=== PATIENT | female | born 1990 | race African-American/Black ===

== ENCOUNTER 2021-02-19 09:10 | Emergency (ER) | payer OTHER ==
[~2021-02-19] VITALS: Ht 167.6 cm; Wt 97.7 kg
[2021-02-19 10:22] VITALS: BP 124/90; PULSE 84; TEMP 100.9
== END 2021-02-19 12:43 | disposition left against medical advice (07) ==
LOC: COL.ER 09:10
DX: R53.81 Other malaise (principal)